=== PATIENT | male | born 1985 | race Caucasian/White ===

== ENCOUNTER 2019-03-28 12:23 | Observation (INO) ==
[2019-03-28] MEDS ORDERED: SODIUM CHLORIDE 0.9% 1000ML 500 ML IV ONE (13:31)
[2019-03-28] MEDS ORDERED: LORazepam 0.5 MG/1 ML VIAL IV STA (13:31)
[2019-03-28] MEDS ORDERED: OPTIRAY 320 125ml IV PRN (13:39)
[2019-03-28 13:41] LABS: Basophils # (auto) 0.02 K/uL (0-0.2); Basophils % (auto) 0.3 %; Eosinophils # (auto) 0.03 K/uL (0-0.5); Eosinophils % (auto) 0.4 %; Hematocrit (blood only) 45.8 % (42-52); Hemoglobin 15.8 g/dL (14.0-18.0); Immature Granulocytes # (auto) 0.02 K/uL (0.00-0.02); Immature Granulocytes % (auto) 0.3 %; Lymphocytes # (auto) 2.05 K/uL (1.2-3.4); Lymphocytes % (auto) 27.7 %; Mean Corpuscular Hemoglobin 30.7 pg (25-34); Mean Corpuscular Hgb Conc 34.5 g/dL (32-36); Mean Corpuscular Volume 89.1 fL (80-100); Mean Platelet Volume 11.2 fL (7.4-10.4); Monocytes # (auto) 0.41 K/uL (0.11-0.59); Monocytes % (auto) 5.5 %; Neutrophils # (auto) 4.86 K/uL (1.4-6.5); Neutrophils % (auto) 65.8 %; Platelet Count 278 K/uL (130-400); RDW Coefficient of Variation 12.5 % (11.5-14.5); RDW Standard Deviation 40.3 fL (36.4-46.3); Red Blood Count 5.14 M/uL (4.7-6.1); White Blood Count 7.39 K/uL (4.8-10.8)
[2019-03-28 13:50] LABS: INR 1.1 (0.9-1.1); Partial Thromboplastin Time 26.1 Seconds (21.0-31.0)
[2019-03-28 13:52] LABS: Alanine Aminotransferase 25 U/L (12-78); Albumin Level 4.4 gm/dl (3.4-5.0); Aspartate Aminotransferase 13 U/L (15-37); BUN Creatinine Ratio 12.7 (10-20); Blood Urea Nitrogen 16 mg/dl (7-18); Calcium 9.5 mg/dl (8.5-10.1); Carbon Dioxide 27 mmol/L (21-32); Chloride 106 mmol/L (98-107); Creatinine Clr Calc Pharmacy 95.4 ml/min; Est GFR (African American) 84.7; Glucose 94 mg/dl (70-99); Magnesium 2.2 mg/dl (1.8-2.4); Potassium 3.7 mmol/L (3.5-5.1); Sodium 139 mmol/L (136-145)
--- NOTE | 2019-03-28 13:53 | CT Scan Report ---
CT head/brain wo con CLINICAL HISTORY: 33 years-old Male presenting with Stroke evaluation. TECHNIQUE: Multidetector CT imaging of the head was performed without the use of intravenous contrast . IV contrast: None. One or more dose lowering techniques were used consistent with the principles of ALARA (as low as reasonably achievable), including automatic exposure control, mA or kV adjustment t o individual patient size, and/or use of iterative reconstruction. COMPARISON: None. CT DOSE (mGy.cm): The estimated cumulative dose is 691.00. FINDINGS: Casserole Preparer topogram: Unremarkable. Ventricles and sulci normal in size. No hemorrhage. Brain parenchyma normal in appearance with preser nilam ray-white differentiation. No acute territorial infarct. No mass effect or midline shift. No ext ra-axial fluid collection. Opacification of the sphenoid sinuses. Calvarium intact. IMPRESSION: 1. No acute intracranial abnormality. 2. Opacification of the sphenoid sinuses. Correlate clinically to ensure the absence of acute sinusi tis. ACT 112: Negative or not required by law. Electronically signed by: Christophe Russo M.D. 03/28/2019 1:51 PM
--- NOTE | 2019-03-28 13:55 | CT Scan Report ---
CT angio head w con CLINICAL HISTORY: 33 years-old Male presenting with stroke symptoms. TECHNIQUE: Multidetector CT angiography of the head was performed after the administration of intrave nous contrast. 3-D volumetric and/or maximum intensity projection (MIP) images were subsequently monique nstructed for review. IV contrast: 120 mL of Optiray 320. One or more dose lowering techniques were u sed consistent with the principles of ALARA (as low as reasonably achievable), including automatic ex posure control, mA or kV adjustment to individual patient size, and/or use of iterative reconstructio n. COMPARISON: None. CT DOSE (mGy.cm): The estimated cumulative dose is 691.00 mGy.cm. FINDINGS: Bacteriologist Pharmaceutical topogram: Unremarkable. Anterior circulation: Intracranial portions of the internal carotid arteries patent to the level of t he termini. Anterior cerebral arteries patent. Middle cerebral arteries patent. Anterior communicatin g artery patent. Posterior circulation: Codominant vertebral arteries. Intradural portions of the vertebral arteries p atent. Posterior inferior cerebellar arteries patent. Basilar artery patent. Anterior inferior cerebe llar arteries poorly visualized. Superior cerebellar arteries patent. Posterior cerebral arteries pat ent. Posterior communicating arteries patent. Dural venous sinuses: Patent. Other: Allowing for the phase of contrast, brain parenchyma within normal limits. Opacification of th e sphenoid sinus. IMPRESSION: 1. No evidence of aneurysm, focal vessel occlusion, or significant stenosis of the intracranial katlin winnie. ACT 112: Negative or not required by law. Electronically signed by: Christophe Russo M.D. 03/28/2019 1:54 PM
[2019-03-28 13:57] LABS: Albumin Globulin Ratio 1.3 (0.9-2); Alkaline Phosphatase 58 U/L (45-117); Bilirubin,Total 2.1 mg/dl (0.2-1); Globulin 3.5 gm/dl (2.5-4.0); Total Protein 7.9 gm/dl (6.4-8.2); Troponin I < 0.015 ng/ml (0-0.045)
--- NOTE | 2019-03-28 15:39 | XRay Report ---
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 TECHNIQUE: 3 views of the orbits were obtained. COMPARISON: None. FINDINGS: No radiopaque intraorbital foreign body. Bony orbits grossly intact. Paranasal sinuses grossly clear. Visualized portion of the calvarium intact. IMPRESSION: No intraorbital metallic foreign body to preclude MRI exam. ACT 112: Negative or not required by law. Electronically signed by: Christophe Russo M.D. 03/28/2019 3:38 PM
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
--- NOTE | 2019-03-28 16:08 | Magnetic Resonance Report ---
MRI OF THE BRAIN WITHOUT CONTRAST CLINICAL HISTORY: stroke symptoms TUNNEL VISION, CONFUSION. HEADACHE. COMPARISON STUDY: CT scan dated 03/28/2019 FINDINGS: Sagittal T1, axial diffusion, proton density and T2 weighted axial, coronal FLAIR, and axial T1-weigh bhupendra images were acquired. No intra or extra-axial mass lesions are visualized Axial diffusion-weighted images reveal no evidence of acute or subacute infarction. There is no evidence of ventricular dilatation. Proton density T2-weighted and FLAIR images reveal no significant intraparenchymal signal abnormaliti es. There are no abnormal flow voids. Inflammatory changes are present within the sphenoid sinus. IMPRESSION: 1. Sphenoid sinus opacification 2. Otherwise normal noncontrast MRI the brain. ACT 112: Negative or not required by law. Electronically signed by: Ghanshyam Ronquillo M.D. 03/28/2019 4:07 PM
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
[2019-03-28 16:22] LABS: Bilirubin Direct 0.3 mg/dl (0-0.2); Thyroid Stimulating Hormone 1.09 uIu/ml (0.300-4.500)
[2019-03-28 16:37] LABS: Appearance Urine Clear (Clear); Bacteria Urine Automated Negative (Negative); Bilirubin Urine Negative (Negative); Blood Urine Negative (Negative); Cast Urine Automated 0 /lpf (0-5); Color Urine Yellow; Epithelial Cell Urine Auto 0-5 /lpf (0-5); Glucose Urine UA Negative (Negative); Ketones Urine Negative (Negative); Leukocyte Esterase Urine Trace (Negative); Nitrite Urine Negative (Negative); Protein Urine Negative (Negative); RBC Urine Automated 0-4 /hpf (0-4); Specific Gravity Urine > 1.045 (1.000-1.030); Urobilinogen Urine Negative (Negative)
[2019-03-28] MEDS ORDERED: ALUMINUM/MAGNESIUM SUSP 30 ML UDC PO PRN (16:49)
[2019-03-28] MEDS ORDERED: MAGNESIUM HYDROXIDE SUSP 30 ML UDC PO PRN (16:49)
[2019-03-28] MEDS ORDERED: PHARMACIST DISCHARGE MED REC CONSULT PRN (16:49)
[2019-03-28] MEDS ORDERED: ONDANSETRON INJ 2 MG/ML 2 ML VIAL IV PRN (16:49)
[2019-03-28] MEDS ORDERED: ACETAMINOPHEN 325 MG TAB PO PRN (16:49)
[2019-03-28] MEDS ORDERED: POLYETHYLENE (MIRALAX) 17 GM PACK PO PRN (16:49)
[2019-03-28 16:55] LABS: Amphetamines+Metham, Urine Neg (Neg); Barbiturates, Urine Neg (Neg); Benzodiazepine, Urine Neg (Neg); Cocaine, Urine Neg (Neg); MDMA (Ecstacy), Urine Neg (Neg); Methadone, Urine Neg (Neg); Opiate, Urine Neg (Neg); Phencyclidine, Urine Neg (Neg)
--- NOTE | 2019-03-28 16:55 | Electrocardiogram Report ---
Test Reason : Blood Pressure : / mmHG Vent. Rate : 091 BPM Atrial Rate : 091 BPM P-R Int : 144 ms QRS Dur : 112 ms QT Int : 358 ms P-R-T Axes : 060 056 065 degrees QTc Int : 440 ms Normal sinus rhythm RSR' or QR pattern in V1 suggests right ventricular conduction delay Borderline ECG No previous ECGs available Confirmed by Jamir Akbar ([id number]) on 03/28/2019 4:54:28 PM Referred By: Confirmed By:Jamir Akbar
--- NOTE | 2019-03-28 17:33 | Emergency Department Note ---
Entered by Jose Lopez acting as a scribe for History of Present Illness General Chief complaint: Altered Mental Status Stated complaint: WEAKNESS VISUAL DISTURBANCE METAL TASTE Time Seen by Provider: 03/28/19 13:25 Source: patient Limitations: no limitations History of Present Illness Location: eyes Pain Consistency: + constant Maximum Pain Intensity: 7 Quality: + constant Associated symptoms: + other (tunnel vision, blurry vision, head tightness, metallic taste in mouth) The patient is a 33 year old male who presents to the Emergency Room with com plaints of constant visual change. The patient states his vision is blurry and he has tunnel vision. He notes he is unsure how he got to the hospital today. He states he has never had problems like this before. He notes he has a metallic taste in his mouth. He states he is unsure when his symptoms started. He states he remembers waking up this morning and was going to take his daughter to [place]. He states he felt fine this morning. He states he never had issues with his memory, weakness to one side, or previous strokes. He notes he has tightness in his head and states it is around the middle of his face. He notes he has had a lot of concussions in his life. He denies having any falls today that he could recall. He denies having diabetes. Nursing states the patient came from work. HPI is limited secondary to confusion. Home Medications Home Medications Medication Instructions Recorded Confirmed Type No Known Home Medications 03/28/19 03/28/19 History Allergies Allergy/AdvReac Type Severity Reaction Status Date / Time No Known Allergies Allergy Unverified 07/13/14 11:43 Past Med/Surg History Medical History History of multiple concussions from contact sport Migraine Traumatic brain injury (Resolved) Surgical History No significant past surgical history Family History (Updated 03/28/19 @ 16:05 by Tierney Bolivar PA-C) Other Diabetes Hypertension Prostate cancer Social History (Updated 03/28/19 @ 16:06 by Tierney Bolivar PA-C) Preferred Language: Slovenian Communication Ability: Effective Shoe Lining Fitter Required: No Beliefs That Will Affect Care: None marital status: Single Current Living Situation: Alone Current Living Situation Comment: with 5 year old daughter current occupational status: employed 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 [employer] Other Information That Helps Us Care for You: No Feels Safe at Home: Yes Safety Concerns: Feels Safe At This Time Smoking Status: Former smoker Do You Dip or Chew Tobacco: No ; Second Hand Exposure: No ; Tobacco Cessation Education Requested by Patient: No Hx Alcohol Use: Yes Alcohol type: beer and hard liquor Alcohol Intake Frequency: Weekly Alcohol Intake Frequency Comment: < 7 drinks per week Hx Substance Use: No Review of Systems Other (ROS limited secondary to confusion.) Physical Exam Vital Signs Vital Signs - 24 hr 03/28/19 12:25 03/28/19 12:34 03/28/19 13:00 Temperature 36.8 C Temperature Source Oral Pulse Rate 93 H 78 83 Pulse Rate from SpO2 Sensor 84 Pulse Rhythm Regular Pulse Strength Normal Respiratory Rate 20 16 21 Respiratory Effort / Characteristics Non-Labored Spontaneous Respiratory Depth Normal Respiratory Pattern Regular Blood Pressure 130/74 Blood Pressure Mean 92 Blood Pressure Position Sitting Pulse Oximetry 98 98 Oxygen Delivery Method Room Air Sepsis Recent Fever Within 48 Hours No Sepsis Action Taken by Nursing No Action Required 03/28/19 13:10 03/28/19 13:23 03/28/19 13:31 Temperature Temperature Source Pulse Rate 96 H 77 73 Pulse Rate from SpO2 Sensor 99 H 85 Pulse Rhythm Pulse Strength Respiratory Rate 15 21 15 Respiratory Effort / Characteristics Respiratory Depth Respiratory Pattern Blood Pressure 136/81 136/97 132/79 Blood Pressure Mean 109 113 96 Blood Pressure Position Pulse Oximetry 99 99 Oxygen Delivery Method Sepsis Recent Fever Within 48 Hours Sepsis Action Taken by Nursing 03/28/19 14:00 03/28/19 14:01 03/28/19 14:30 Temperature Temperature Source Pulse Rate 84 88 98 H Pulse Rate from SpO2 Sensor 90 88 97 H Pulse Rhythm Pulse Strength Respiratory Rate 20 17 23 Respiratory Effort / Characteristics Respiratory Depth Respiratory Pattern Blood Pressure 139/89 140/94 Blood Pressure Mean 112 109 Blood Pressure Position Pulse Oximetry 100 100 100 Oxygen Delivery Method Room Air Sepsis Recent Fever Within 48 Hours Sepsis Action Taken by Nursing 03/28/19 15:00 03/28/19 15:01 Temperature Temperature Source Pulse Rate 89 93 H Pulse Rate from SpO2 Sensor Pulse Rhythm Pulse Strength Respiratory Rate 22 19 Respiratory Effort / Characteristics Respiratory Depth Respiratory Pattern Blood Pressure 134/85 Blood Pressure Mean 105 Blood Pressure Position Pulse Oximetry Oxygen Delivery Method Sepsis Recent Fever Within 48 Hours Sepsis Action Taken by Nursing GENERAL: Patient is in mild distress. Anxious and tearful. HEENT: No acute trauma, normocephalic atraumatic mucous membranes moist, no nasal congestion, no scleral icterus. Pupils equal and reactive to light. NECK: No stridor, no adenopathy, no meningismus, trachea is midline. LUNGS: Clear to auscultation bilaterally, no wheeze, no rhonchi, breath sounds equal. HEART: Without murmurs gallops or rubs, regular rate and rhythm. ABDOMEN: Soft, nontender, bowel sounds positive, no hernias, no peritonitis. EXTREMITIES: No cyanosis or edema, full range of motion of all the joints without pain or difficulty, no signs for acute trauma. NEUROLOGIC: No facial droop. No speech slur. Awake and alert. Amnestic to today's events. Diffuse weakness. Bilateral and equal upper extremity drift. No cerebellar dysfunction. SKIN: No rash, no jaundice, no diaphoresis. Course Course 1326: The patient was evaluated in room C2B, and a complete history and physical examination were performed. 1412: I reevaluated the patient. He is feeling better but still does not have memory of what happened today. Patient was insisting today was Sunday, he was assured it was actually Sunday. The patient was told that he was at work today, now with his daughter. 1425: I spoke with Dr. Elam - Jesse. She recommends getting a MRI and a hospital stay. 1453: I spoke with Tierney Holt PA-C. Dr. Mendoza, [facility] Hospitalist, will further manage the care of the patient. Administered Medications Discontinued Medications Lorazepam (Ativan) 0.5 mg in 1 mls @ 1 mls/min IV NOW STA Stop: 03/28/19 13:32 Last Admin: 03/28/19 13:58 Dose: 1 mls/min Documented by: [id number] Sodium Chloride (Nss 1000ml) 500 mls @ 999 mls/hr IV .Q31M ONE Stop: 03/28/19 14:01 Last Infusion: 03/28/19 14:45 Dose: 0 mls/hr Documented by: [id number] Admin: 03/28/19 13:58 Dose: 999 mls/hr Documented by: [id number] Ioversol (Optiray 320 125ml) 120 ml IV ONCE PRN PRN Reason: Interaction Checking Stop: 04/01/19 13:38 Last Admin: 03/28/19 13:40 Dose: 120 ml Documented by: [id number] Medical Decision Making Differential Diagnosis Differential Diagnosis includes but is not limited to stroke, intracranial bleeding, anxiety, depression, drug abuse, electrolyte imbalance, head injury, metabolic abnormality, dehydration, and migraine. Medical Records Attestation: I reviewed the patient's medical records. Home Medications Current Medication List: was personally reviewed by me Laboratory Data Attestation: I reviewed the patient's lab results. Result diagrams: 03/28/19 13:19 03/28/19 13:19 Lab Results 03/28/19 03/28/19 03/28/19 Range/Units 13:19 13:19 13:19 WBC 7.39 (4.8-10.8) K/uL RBC 5.14 (4.7-6.1) M/uL Hgb 15.8 (14.0-18.0) g/dL Hct 45.8 (42-52) % MCV 89.1 (80-100) fL MCH 30.7 (25-34) pg MCHC 34.5 (32-36) g/dL RDW Std Deviation 40.3 (36.4-46.3) fL RDW Coeff of Daron 12.5 (11.5-14.5) % Plt Count 278 (130-400) K/uL MPV 11.2 H (7.4-10.4) fL Immature Gran % (Auto) 0.3 % Neut % (Auto) 65.8 % Lymph % (Auto) 27.7 % Wilcox % (Auto) 5.5 % Eos % (Auto) 0.4 % Baso % (Auto) 0.3 % Immature Gran # (Auto) 0.02 (0.00-0.02) K/uL Neut # (Auto) 4.86 (1.4-6.5) K/uL Lymph # (Auto) 2.05 (1.2-3.4) K/uL Wilcox # (Auto) 0.41 (0.11-0.59) K/uL Eos # (Auto) 0.03 (0-0.5) K/uL Baso # (Auto) 0.02 (0-0.2) K/uL PT 11.0 (9.0-12.0) Seconds INR 1.1 (0.9-1.1) APTT 26.1 (21.0-31.0) Seconds PTT Ratio 1.0 Sodium 139 (136-145) mmol/L Potassium 3.7 (3.5-5.1) mmol/L Chloride 106 (98-107) mmol/L Carbon Dioxide 27 (21-32) mmol/L Anion Gap 6.0 (3-11) BUN 16 (7-18) mg/dl Creatinine 1.28 (0.6-1.4) mg/dl Est Cr Clr Drug Dosing 95.4 ml/min Est GFR ( Amer) 84.7 Est GFR (Non-Af Amer) 73.0 BUN/Creatinine Ratio 12.7 (10-20) Glucose 94 (70-99) mg/dl Calcium 9.5 (8.5-10.1) mg/dl Magnesium 2.2 (1.8-2.4) mg/dl Total Bilirubin 2.1 H (0.2-1) mg/dl Direct Bilirubin (0-0.2) mg/dl AST 13 L (15-37) U/L ALT 25 (12-78) U/L Alkaline Phosphatase 58 (45-117) U/L Troponin I < 0.015 (0-0.045) ng/ml Total Protein 7.9 (6.4-8.2) gm/dl Albumin 4.4 (3.4-5.0) gm/dl Globulin 3.5 (2.5-4.0) gm/dl Albumin/Globulin Ratio 1.3 (0.9-2) TSH (0.300-4.500) uIu/ml 03/28/19 Range/Units 13:19 WBC (4.8-10.8) K/uL RBC (4.7-6.1) M/uL Hgb (14.0-18.0) g/dL Hct (42-52) % MCV (80-100) fL MCH (25-34) pg MCHC (32-36) g/dL RDW Std Deviation (36.4-46.3) fL RDW Coeff of Daron (11.5-14.5) % Plt Count (130-400) K/uL MPV (7.4-10.4) fL Immature Gran % (Auto) % Neut % (Auto) % Lymph % (Auto) % Wilcox % (Auto) % Eos % (Auto) % Baso % (Auto) % Immature Gran # (Auto) (0.00-0.02) K/uL Neut # (Auto) (1.4-6.5) K/uL Lymph # (Auto) (1.2-3.4) K/uL Wilcox # (Auto) (0.11-0.59) K/uL Eos # (Auto) (0-0.5) K/uL Baso # (Auto) (0-0.2) K/uL PT (9.0-12.0) Seconds INR (0.9-1.1) APTT (21.0-31.0) Seconds PTT Ratio Sodium (136-145) mmol/L Potassium (3.5-5.1) mmol/L Chloride (98-107) mmol/L Carbon Dioxide (21-32) mmol/L Anion Gap (3-11) BUN (7-18) mg/dl Creatinine (0.6-1.4) mg/dl Est Cr Clr Drug Dosing ml/min Est GFR ( Amer) Est GFR (Non-Af Amer) BUN/Creatinine Ratio (10-20) Glucose (70-99) mg/dl Calcium (8.5-10.1) mg/dl Magnesium (1.8-2.4) mg/dl Total Bilirubin (0.2-1) mg/dl Direct Bilirubin 0.3 H (0-0.2) mg/dl AST (15-37) U/L ALT (12-78) U/L Alkaline Phosphatase (45-117) U/L Troponin I (0-0.045) ng/ml Total Protein (6.4-8.2) gm/dl Albumin (3.4-5.0) gm/dl Globulin (2.5-4.0) gm/dl Albumin/Globulin Ratio (0.9-2) TSH 1.090 (0.300-4.500) uIu/ml Imaging Data Radiologist's Impression: Radiology results as stated below per my review and the radiologist's interpretation: CT head/brain wo con CLINICAL HISTORY: 33 years-old Male presenting with Stroke evaluation. TECHNIQUE: Multidetector CT imaging of the head was performed without the use of intravenous contrast. IV contrast: None. One or more dose lowering techniques were used consistent with the principles of ALARA (as low as reasonably achievable), including automatic exposure control, mA or kV adjustment to individual patient size, and/or use of iterative reconstruction. COMPARISON: None. CT DOSE (mGy.cm): The estimated cumulative dose is 691.00. FINDINGS: Senior Web Developer topogram: Unremarkable. Ventricles and sulci normal in size. No hemorrhage. Brain parenchyma normal in appearance with preserved ray-white differentiation. No acute territorial infarct. No mass effect or midline shift. No extra-axial fluid collection. Opacification of the sphenoid sinuses. Calvarium intact. IMPRESSION: 1. No acute intracranial abnormality. 2. Opacification of the sphenoid sinuses. Correlate clinically to ensure the absence of acute sinusitis. ACT 112: Negative or not required by law. Electronically signed by: Christophe Russo M.D. 03/28/2019 1:[address] angio head w con CLINICAL HISTORY: 33 years-old Male presenting with stroke symptoms. TECHNIQUE: Multidetector CT angiography of the head was performed after the administration of intravenous contrast. 3-D volumetric and/or maximum intensity projection (MIP) images were subsequently reconstructed for review. IV contrast: 120 mL of Optiray 320. One or more dose lowering techniques were used consistent with the principles of ALARA (as low as reasonably achievable), including automatic exposure control, mA or kV adjustment to individual patient size, and/or use of iterative reconstruction. COMPARISON: None. CT DOSE (mGy.cm): The estimated cumulative dose is 691.00 mGy.cm. FINDINGS: Senior Web Developer topogram: Unremarkable. Anterior circulation: Intracranial portions of the internal carotid arteries patent to the level of the termini. Anterior cerebral arteries patent. Middle cerebral arteries patent. Anterior communicating artery patent. Posterior circulation: Codominant vertebral arteries. Intradural portions of the vertebral arteries patent. Posterior inferior cerebellar arteries patent. Basilar artery patent. Anterior inferior cerebellar arteries poorly visualized. Superior cerebellar arteries patent. Posterior cerebral arteries patent. Posterior communicating arteries patent. Dural venous sinuses: Patent. Other: Allowing for the phase of contrast, brain parenchyma within normal limits. Opacification of the sphenoid sinus. IMPRESSION: 1. No evidence of aneurysm, focal vessel occlusion, or significant stenosis of the intracranial arteries. ACT 112: Negative or not required by law. Electronically signed by: Christophe Russo M.D. 03/28/2019 1:54 PM ECG Data Attestation: I personally reviewed and interpreted this ECG as follows: Indication: + altered mental status Rate (beats per minute): 91 Rhythm: + normal sinus ECG Intervals/blocks: + Normal QT-c (QT-c is 434) ECG ST segments: no ST depression and no ST elevation ECG Findings: no PVCs Blood Pressure Blood Pressure Findings: Elevated blood pressure Blood Pressure Disposition: further management by hospitalist [facility] Narrative There is no leukocytosis or concerning anemia. No coagulopathy. No significant electrolyte abnormality or kidney failure. Bilirubin was mildly elevated, the remaining LFTs were unremarkable. No evidence for any issue with the patient's thyroid. EKG shows a sinus rhythm, no acute ischemia. Cardiac enzyme testing x1 is not consistent with acute cardiac injury. Urinalysis does show a few white cells, no bacteria. Urine tox was negative. Brain CT Angio did not show evidence for mass or aneurysm, there was no stroke lesion found. Sphenoid sinusitis was seen. Brain MRI did not show any evidence for stroke. There was no mass. Sphenoid sinusitis was noted. On my exam, the patient did not have any focal neurologic findings. He was not febrile or toxic. He was amnestic of today's events. The patient received IV saline. He was given a small dose of IV Ativan for his stress and anxiety. The patient is still amnestic of today's events but his anxiety has improved. He is resting comfortably. I did speak with neurology. A hospital stay was felt warranted. Further work-up was felt warranted. At this point, the cause for his presentation and complaints is unclear, complex migraine though is a thought. Certainly transient global amnesia is a possibility. I did speak with case management, the on-call hospitalist was consulted. Impression & Plan Stroke-like symptom, Amnesia, Headache, Visual disturbance Discharge Plan Visit Data *Final* Discharge Date/Time: 03/28/19 16:23 Chief Complaint: Altered Mental Status Stated Complaint: WEAKNESS VISUAL DISTURBANCE METAL TASTE Other Complaint: Visual Disturbance ED Provider: Inocente Adkins Discharge Problem: Stroke-like symptom, Amnesia, Headache, Visual disturbance Patient Disposition: Admitted As Inpatient Discharge Instructions Interventions: ED Discharge Assessment Last Done: 03/28/19 16:23 Discharge Problem: Headache Qualifiers: Headache type: unspecified Headache chronicity pattern: unspecified pattern Intractability: not intractable Qualified Code(s): R51 - Headache The scribe's documentation has been prepared under my direction and personally reviewed by me in its entirety. I confirm that the note above accurately reflects all work, treatment, procedures, and medical decision making performed by me.
[2019-03-28] MEDS ORDERED: IBUPROFEN 800 MG TAB PO PRN (17:44)
[2019-03-28] MEDS ORDERED: GADOBUTROL 65ML VIAL IV PRN (21:09)
--- NOTE | 2019-03-28 21:09 | Magnetic Resonance Report ---
MR cervical spine wo con CLINICAL HISTORY: Generalized weakness, arms brisk reflexes, myelopathy TECHNIQUE: Sagittal and axial T1, T2 and STIR images were obtained. COMPARISON STUDY: No previous studies for comparison. There are no suspicious areas of marrow replacement. No intrinsic cervical cord lesions are visualize d. C2-3: There is no evidence of disc bulge or focal herniation. There is no spinal or foraminal stenosi s. C3-4: There is a minor circumferential disc bulge with minimal spinal canal narrowing. There is no si gnificant foraminal stenosis C4-5: There is a minimal circumferential disc bulge with minimal spinal canal narrowing. There is no significant foraminal narrowing C5-6 :There is a mild circumferential disc bulge with minor spinal canal narrowing. There is no signi ficant foraminal stenosis C6-7: There is a mild circumferential disc bulge with minor spinal canal narrowing. There is no signi ficant foraminal stenosis C7-T1: There is no evidence of disc bulge or focal herniation. There is no evidence of spinal or fora faustino stenosis. The study is degraded due to motion artifact. There is sphenoid sinus opacification IMPRESSION: 1. Motion degraded study 2. Mild multilevel disc bulges 3. Very minor multilevel spinal canal narrowing 4. No cord lesions identified ACT 112: Negative or not required by law. Electronically signed by: Ghanshyam Ronquillo M.D. 03/28/2019 9:08 PM
--- NOTE | 2019-03-28 21:33 | Magnetic Resonance Report ---
MRI OF THE BRAIN WITHOUT AND WITH IV CONTRAST CLINICAL HISTORY: Change in mental status. Confusion migraine versus seizure versus transient ischemi c attack COMPARISON STUDY: Noncontrast study performed earlier in the day TECHNIQUE: MRI of the brain was performed from the vertex to the skull base utilizing various T1 and T2 weighted sequences. Following the IV administration of 9 mL of Gadavist contrast, additional enhan pema images were obtained. FINDINGS: Sagittal T1, axial diffusion, proton density and T2 weighted axial, coronal FLAIR, and pre and post a xial T1-weighted images were acquired. These were supplemented with post gadolinium coronal T1 weight ed images. No intra or extra-axial mass lesions are visualized. Axial diffusion-weighted images reveal no evidence of acute or subacute infarction. There is no evidence of ventricular dilatation. Proton density T2-weighted and FLAIR images reveal no significant intraparenchymal signal abnormaliti es. There are no abnormal flow voids. There is no evidence of pathologic enhancement. Thin section T2-weighted images through the temporal lobes reveal symmetric hippocampal formations. There is persistent opacification of the sphenoid sinus. IMPRESSION: 1. Sphenoid sinus opacification 2. Otherwise normal MRI the brain. No evidence of acute or subacute infarction. No evidence of intrac ranial mass. No evidence of pathologic enhancement. ACT 112: Negative or not required by law. Electronically signed by: Ghanshyam Ronquillo M.D. 03/28/2019 9:32 PM
--- NOTE | 2019-03-28 22:23 | Ultrasound Report ---
ULTRASOUND OF THE CAROTID ARTERIES CLINICAL HISTORY: Change in mental status COMPARISON STUDY: None. TECHNIQUE: Real-time, grayscale, and color Doppler sonography of the carotid arteries was performed. Imaging reviewed in the transverse and longitudinal planes. NASCET criteria was utilized for stenosis calcification. FINDINGS: There is minimal atherosclerotic plaque present . The peak systolic velocity within the right internal carotid artery is 55 cm/sec. The systolic velocity ratio of right internal to common carotid artery is 0.5. The peak systolic velocity within the left internal carotid artery is 52 cm/sec. The systolic velocity ratio left internal to common carotid artery is 0.5. Antegrade flow is seen in the vertebral arteries. The external carotid arteries are patent. Blood pressure in the right arm measured 126 mm/Hg. Blood pressure in the left arm measured 121 mm/H g. IMPRESSION: No evidence of hemodynamically significant carotid stenosis. ACT 112: Negative or not required by law. Electronically signed by: Ghanshyam Ronquillo M.D. 03/28/2019 10:22 PM
[2019-03-29 06:05] LABS: Basophils # (auto) 0.04 K/uL (0-0.2); Basophils % (auto) 0.6 %; Eosinophils # (auto) 0.12 K/uL (0-0.5); Eosinophils % (auto) 1.9 %; Hematocrit (blood only) 44.1 % (42-52); Hemoglobin 14.9 g/dL (14.0-18.0); Immature Granulocytes # (auto) 0.01 K/uL (0.00-0.02); Immature Granulocytes % (auto) 0.2 %; Lymphocytes # (auto) 2.69 K/uL (1.2-3.4); Mean Corpuscular Hemoglobin 30.5 pg (25-34); Mean Corpuscular Hgb Conc 33.8 g/dL (32-36); Mean Corpuscular Volume 90.4 fL (80-100); Mean Platelet Volume 11.1 fL (7.4-10.4); Monocytes # (auto) 0.59 K/uL (0.11-0.59); Monocytes % (auto) 9.2 %; Neutrophils # (auto) 2.95 K/uL (1.4-6.5); Neutrophils % (auto) 46.1 %; Platelet Count 278 K/uL (130-400); RDW Coefficient of Variation 12.7 % (11.5-14.5); Red Blood Count 4.88 M/uL (4.7-6.1)
[2019-03-29 06:34] LABS: Estimated Average Glucose 105 mg/dl; Hemoglobin A1C 5.3 % (4.5-5.6)
[2019-03-29 06:49] LABS: BUN Creatinine Ratio 11.5 (10-20); Calcium 9.1 mg/dl (8.5-10.1); Creatinine Clr Calc Pharmacy 100.1 ml/min; Est GFR (African American) 89.7; Est GFR (Non-African American) 77.4; Potassium 4.3 mmol/L (3.5-5.1)
--- NOTE | 2019-03-29 11:34 | Progress Note ---
DATE: 03/29/2019 SUBJECTIVE: I have seen the patient in followup of an episode of protracted amnesia followed by headache. Headache has resolved with ibuprofen. Cervical spine MRI done because of upper extremity weakness is degraded by motion, shows mild multilevel disk bulges, no significant cord compression and no cord lesions identified. MRI of the brain: Sphenoid sinus opacification, otherwise normal. Carotid ultrasound: No significant stenosis. PHYSICAL EXAMINATION: VITAL SIGNS: 123/73, 90, 17, 36.4, 98% on room air. NEUROLOGIC: The patient is awake and alert, normal speech and language. Affect is appropriate. There is full strength in the upper and lowers. Symmetrically mildly brisk reflexes. No clonus and toes are downgoing. IMPRESSION: Confusional migraine versus transient global amnesia. PLAN: Await results of EEG. Suspect this will be normal. The patient does not currently require any prophylaxis for migraine as the migraines are infrequent. Dr. Mariscal and I discussed potentially having Psychiatry see him. He has had significant personal stressors indicates that he is somewhat flatter or motionless about some family stressors. He has also been served new court papers for the custody of his child. If Psychiatry is available in the hospital, he will have a Psychiatry consult; otherwise, I would recommend that he see Psychology as an outpatient for counseling. The patient is in agreement. The patient should see us in followup post discharge. Marjan Hernandez would likely be available in 2 weeks.
--- NOTE | 2019-03-29 11:57 | Electroencephalogram ---
EEG Procedure Note Date of Service March 29, 2019 Start / End Times Start Time: 09:41 End Time: 10:[address] Marjan Haro History A 33 year old male with episodes of confusion. EEG performed for evaluation of seizures. Home Medication List Home Medications Medication Instructions Recorded Confirmed Type No Known Home Medications 03/28/19 03/28/19 History Inpatient Medication List Gadobutrol (Gadavist 65ml) 9 ml IV ONCE PRN PRN Reason: Interaction Checking Stop: 04/01/19 21:08 Last Admin: 03/28/19 21:09 Dose: 9 ml Documented by: [id number] Ibuprofen (Motrin) 800 mg PO TID PRN PRN Reason: Migraine Headache Stop: 04/27/19 20:59 Last Admin: 03/28/19 18:46 Dose: 800 mg Documented by: [id number] Discontinued Medications Lorazepam (Ativan) 0.5 mg in 1 mls @ 1 mls/min IV NOW STA Stop: 03/28/19 13:32 Last Admin: 03/28/19 13:58 Dose: 1 mls/min Documented by: [id number] Sodium Chloride (Nss 1000ml) 500 mls @ 999 mls/hr IV .Q31M ONE Stop: 03/28/19 14:01 Last Infusion: 03/28/19 14:45 Dose: 0 mls/hr Documented by: [id number] Admin: 03/28/19 13:58 Dose: 999 mls/hr Documented by: [id number] Ioversol (Optiray 320 125ml) 120 ml IV ONCE PRN PRN Reason: Interaction Checking Stop: 04/01/19 13:38 Last Admin: 03/28/19 13:40 Dose: 120 ml Documented by: [id number] Description This is a 21 electrode EEG with a single channel dedicated to limited EKG. The electrodes were placed in accordance with the International 10-20 system. REPORT: At the onset of the EEG, the patient is awake. The background activity consist of 10-11 Hz, persistent, posteriorly dominant, low amplitude, symmetric and rhythmic activity that is reactive to eye opening. Anteriorly, it consist of a mixture of low voltage indeterminate activity. Stepwise intermittent photic stimulation does not induce any abnormalities. Drowsiness is characterized by low amplitude mixed frequency activity, roving eye movements, and decreased eye blinking and muscle artifact. IMPRESSION: This is a normal awake and drowsy EEG. No epileptiform discharges or electrographic seizures are recorded.
--- NOTE | 2019-03-29 12:11 | Hospitalist Progress Note ---
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 He was brought in and dropped off by coworkers secondary to complaints of tunnel vision, headache and confusion. MRI Brain : no acute abnormality, + sphenoid sinus opacification Pt with out URI sx, fever Pt presenting with Altered mental status and NGUYỄN/visual changes similar to prior migraines. AMS is new, but may be atypical migraine Does not appear to be infectious Clinically a lot better this morning Looks depressed and anxious at times No more recurrence of symptoms and all the symptoms have resolved Awaiting EEG and echo results Medically stable now like to go home tomorrow Anxiety/depression Noted to have very anxious with depressed mood Will ask psychiatric evaluation while in the hospital Opacity seen sphenoid sinuses Denies any symptoms of acute sinusitis We will try to discuss with ENT specialist (5) DVT prophylaxis: SCD/TEDS Disposition: admit to tele Follow up: Pt needs to establish with PCP upon discharge Pt was seen and examined in collaboration with Dr. Mendoza, please see addendum Subjective 03/29/2019 The patient was seen and examined in telemetry unit He was brought into the hospital by his coworkers with history of sudden headache and amnesia Did have tunnel vision associated with it while in the emergency room He had history of recurrent concussion but those did not require any hospitalization and no history of loss of consciousness with complete recovery Denies any symptoms as of this morning Does not have any sinus pain and/or pressure and no history of allergic rhinitis Review of Systems Review of Systems: All systems reviewed and are unremarkable except as noted below Eyes: + tunnel vision (Tunnel vision reported on admission and completely resolved now) Neurologic: + memory loss (Cannot remember anything that happened yesterday when he was in the office and then was brought into the emergency room by coworkers) Physical Exam Physical Exam: Lying in bed comfortably and looks depressed Constitutional: well developed, well nourished and + ill appearing (Looks depressed); no acute distress Eyes: PERRL, conjunctivae normal, anicteric sclerae ENMT: No runny nose, sneezing, sinus pain and/or pressure Neck: trachea midline, no thyromegaly Respiratory: normal respiratory effort Auscultation: lungs clear to auscultation bilaterally Cardiovascular: Rate/Rhythm: regular rate and regular rhythm Heart Sounds: no murmur Gastrointestinal (Abdomen): Inspection/Auscultation: abdomen normal to inspection and normal bowel sounds Percussion/Palpation: abdomen soft; abdomen nontender Musculoskeletal: Extremities: strength 5/5 throughout Neurologic: patellar DTR's 2+ bilat, sensation intact moves all extremities; no focal motor deficits Speech / Cognition: normal speech Motor/Sensory: no tremor Psychiatric: Orientation: alert and oriented x 3 Affect: + depressed affect and + anxious affect Mood: + depressed mood Lymphatic: no cervical or axillary lymphadenopathy Results & Data Vital Signs (Past 12 Hours) Vital Signs Temp Pulse Pulse Resp BP Pulse Ox Pulse Ox 03/29/19 10:49 36.8 C 91 H 17 121/70 96 03/29/19 08:00 90 98 03/29/19 07:49 36.4 C L 97 H 17 123/73 98 03/29/19 03:41 36.6 C 71 16 103/56 L 97 Laboratory Results Short CBC 03/28/19 03/29/19 Range/Units 13:19 05:36 WBC 7.39 6.40 (4.8-10.8) K/uL Hgb 15.8 14.9 (14.0-18.0) g/dL Hct 45.8 44.1 (42-52) % Plt Count 278 278 (130-400) K/uL BMP 03/28/19 03/29/19 13:19 05:36 Sodium 139 138 Potassium 3.7 4.3 D Chloride 106 107 Carbon Dioxide 27 30 BUN 16 14 Creatinine 1.28 1.22 Glucose 94 87 Calcium 9.5 9.1 Cardiac Enzymes 03/28/19 Range/Units 13:19 Troponin I < 0.015 (0-0.045) ng/ml Liver Function 03/28/19 03/28/19 Range/Units 13:19 13:19 Total Bilirubin 2.1 H (0.2-1) mg/dl Direct Bilirubin 0.3 H (0-0.2) mg/dl AST 13 L (15-37) U/L ALT 25 (12-78) U/L Alkaline Phosphatase 58 (45-117) U/L Albumin 4.4 (3.4-5.0) gm/dl Urine 03/28/19 Range/Units 16:25 Urine Color Yellow Urine Appearance Clear (Clear) Urine pH 6.0 (4.5-7.5) Ur Specific [place] > 1.045 H (1.000-1.030) Urine Protein Negative (Negative) Urine Glucose (UA) Negative (Negative) Medications Administered Current Inpatient Medications Acetaminophen (Tylenol) 650 mg PO Q4H PRN PRN Reason: Pain or Fever Stop: 04/27/19 16:48 Al Hydrox/Mg Hydrox/Simethicone (Maalox) 15 ml PO Q4H PRN PRN Reason: Dyspepsia Stop: 04/27/19 16:48 Gadobutrol (Gadavist 65ml) 9 ml IV ONCE PRN PRN Reason: Interaction Checking Stop: 04/01/19 21:08 Last Admin: 03/28/19 21:09 Dose: 9 ml Documented by: Ibuprofen (Motrin) 800 mg PO TID PRN PRN Reason: Migraine Headache Stop: 04/27/19 20:59 Last Admin: 03/28/19 18:46 Dose: 800 mg Documented by: Magnesium Hydroxide (Milk Of Magnesia) 30 ml PO Q12H PRN PRN Reason: Constipation Stop: 04/27/19 16:48 Miscellaneous Information (Pharmacist Discharge Med Rec Consult) 1 ea N/A UD PRN PRN Reason: Consult Stop: 04/27/19 16:48 Ondansetron HCl (Zofran) 4 mg IV Q6H PRN PRN Reason: Nausea Stop: 04/27/19 16:48 Polyethylene Glycol (Miralax Powder Packet) 17 gm PO DAILY PRN PRN Reason: Constipation Stop: 04/27/19 16:48
--- NOTE | 2019-03-29 13:05 | Psychiatric Consultation ---
Date of Consultation March 29, 2019 Impression / Recommendations (1) Depression: Discussed interplay of mood, anxiety, and neurologic symptoms.reviewed his diagnosis and treatment options, including medications and therapy. Also reviewed behavioral techniques to improve mood, including ensuring adequate time for a full night sleep, good nutrition, engaging in activities he enjoys, and socialization. He agreed to a trial of sertraline; 25 mg daily today and 50 mg daily tomorrow. Reviewed risks, benefits, and side effects. Discussed that it will take 4 to 6 weeks to see the full effect. Discussed option of following up with PCP or psychiatrist for medication management. Recommend individual psychotherapy; will ask the liaison nurse to give him the book of [facility] health resources. Present on Admission?: Yes Risk Factors Assessment Male: Yes : Yes Health Problems: Yes Mental Health Diagnoses: Yes Substance Use Disorders: No Previous Attempt: No Family History of Suicide: No Previous Psychiatric Hospitalization: No Hopelessness: No Protective Factors Assessment : No Responsible for Young Children: Yes Employed: Yes Supportive Family: Yes Psych History Identifying Data 33-year-old male from [place], [place], who was admitted to the hospitalist service after presenting to the ER yesterday with blurry vision, tunnel vision, confusion, and a metallic taste in his mouth. Psychiatry was consulted for depression and anxiety. Chief Complaint " Just in a rut". 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 He reported blurry vision, tunnel vision, headache, a metallic taste in his mouth, and confusion (did not remember how he got to the ER). He said he remembered getting up in the morning, felt fine, made breakfast and was going to take his daughter to [place] to a museum. He thought it was Sunday but when reoriented realized it was Sunday. Last thing he recalls from last evening is drinking double [place] [employer] with friend. He reported drinking < 7 drinks per week, and denied other substance use. His exam was notable for amnesia, diffuse weakness, bilateral and equal upper extremity drift. He was hemodynamically stable, and CBC, TSH, PT/INR, UA, and UDS were normal. CMP was notable for elevated total bilirubin 2.1 and direct bilirubin 0.3. Troponin negative, FLP normal. CTA of the head was unremarkable, head CT, brain and C- spine MRI, and carotid ultrasound were normal, with the exception of sphenoid sinus opacification. He also had an EEG and echo, the results of which are still pending. 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 He has a history of hospitalization for amnesia and headache after an argument with his father, and a history of migraine with green visual phenomena. Reported multiple stressors, including that he was served papers for custody of his daughter. On my assessment, he states that he has poor memory for the events of yesterday, and remembers coming to the ER, but believing that he had been at home with his daughter earlier that morning, which was inaccurate. His daughter was not actually staying with him, and he had gone into work that morning, but was not feeling well and coworkers brought him into the ER. He had been with his daughter about 2 weeks prior, and took her to [place] to a museum at that time. He only remembers parts of being in the hospital yesterday, stating he had a text message conversation with a friend, but does not recall any of it, although his messages were all appropriate. 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 He was then dating another woman, but she ended the relationship unexpectedly around the holidays. Additionally, he his ex- girlfriend served him with paperwork regarding their custody agreement. Even though he states it will not change the amount of time he sees his daughter, as they have always split custody, he was upset that she felt the need to file legal paperwork, and she did not talk to him about it first. He also reports longstanding discord within the family, stating family members are always fighting, and there are always people who are not talking to one another. He finds it hard to trust his family members and has limited supports. He endorses decreased interest, poor motivation, low energy, decreased sleep, decreased appetite with a 40 pound weight loss in 6 months, social withdrawal, and feeling easily overwhelmed. He states there are times when he has thought he would "rather not be here," but denies any suicidal thoughts, plan or intent to harm himself. He describes feeling emotionally numb and, for example does not care as much about certain things, but at other times feels easily overwhelmed by emotions. He reports longstanding social anxiety and negative ruminations, but denies symptoms of CM, panic, PTSD, ernie, and psychosis. He states he has always felt the need to be strong, feeling he "wasn't allowed to break down." Years ago when he and his daughter's mother had broken up temporarily, he endorsed depressive symptoms, and his PCP recommended an antidepressant, but he never took it. Past Psychiatric History Previous Psych History: None Outpatient Services: None Previous Psych Admissions: None History of Previous Suicide Attempt: No Past Medication Trials: None. Allergies Allergy/AdvReac Type Severity Reaction Status Date / Time No Known Allergies Allergy Unverified 07/13/14 11:43 Home Medications Home Medications Medication Instructions Recorded Confirmed Type No Known Home Medications 03/28/19 03/28/19 History Family History Grandfather with a suicide attempt Substance Abuse History Denies recreational/illicit substance use. Drinks approximately once a week, <7 drinks. Last drink liquor the night prior to presentation. Personal History Living Arrangements: Home Living Arrangements Comments: Alone in [place]. Has shared custody of his daughter Childhood: Lived with grandparents growing up. Strained relationship with his father. 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 He remembers feeling like everyone was looking to him to be strong, and that he could not be sad or cry. Patient History Medical History History of multiple concussions from contact sport Migraine Traumatic brain injury (Resolved) Surgical History No significant past surgical history Family History (Updated 03/28/19 @ 16:05 by Tierney Bolivar PA-C) Other Diabetes Hypertension Prostate cancer Social History (Updated 03/28/19 @ 16:06 by Tierney Bolivar PA-C) Preferred Language: Yakut Communication Ability: Effective Inspector Firearms Required: No Beliefs That Will Affect Care: None marital status: Single Current Living Situation: Alone Current Living Situation Comment: with 5 year old daughter current occupational status: employed 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 [employer] Other Information That Helps Us Care for You: No Feels Safe at Home: Yes Safety Concerns: Feels Safe At This Time Smoking Status: Former smoker Do You Dip or Chew Tobacco: No ; Second Hand Exposure: No ; Tobacco Cessation Education Requested by Patient: No Hx Alcohol Use: Yes Alcohol type: beer and hard liquor Alcohol Intake Frequency: Weekly Alcohol Intake Frequency Comment: < 7 drinks per week Hx Substance Use: No Physical Exam Psychiatric: Orientation: alert, oriented x 3 and cooperative Apperance: appropriately dressed, appropriately groomed and appeared stated age Eye Contact: + fair eye contact Motor Behavior: no abnormal motor movements Speech: normal rate/rhythm/volume of speech Affect: + depressed affect, + constricted affect and mood congruent with affect Mood: + depressed mood Thought Process: goal directed thought process Thought Content: reality based without delusions and + hopelessness Suicidal Thoughts: denies suicidal thoughts Homicidal Thoughts: denies homicidal thoughts Hallucinations: no auditory hallucinations and no visual hallucinations Cognition: remote memory grossly intact, attention grossly intact and language grossly intact; + recent memory not intact Insight: + fair insight Judgement: + fair judgement Vital Signs (Past 24 Hours): Last Vital Signs Temp 36.8 C 03/29/19 10:49 Pulse 91 H 03/29/19 10:49 Resp 17 03/29/19 10:49 BP 121/70 03/29/19 10:49 Pulse Ox 96 03/29/19 10:49 Review of Systems All systems reviewed & are unremarkable except as noted in HPI & below Results & Data Medications Administered Gadobutrol (Gadavist 65ml) 9 ml IV ONCE PRN PRN Reason: Interaction Checking Stop: 04/01/19 21:08 Last Admin: 03/28/19 21:09 Dose: 9 ml Documented by: [id number] Ibuprofen (Motrin) 800 mg PO TID PRN PRN Reason: Migraine Headache Stop: 04/27/19 20:59 Last Admin: 03/28/19 18:46 Dose: 800 mg Documented by: [id number] Coding Level of Care Code 73729 [facility] Intl Hosp Care Lvl 3 Diagnoses Depression F32.9
[2019-03-29] MEDS ORDERED: SERTRALINE HCL 50 MG TABLET PO ONE (15:05)
[2019-03-30 05:53] LABS: Basophils # (auto) 0.03 K/uL (0-0.2); Basophils % (auto) 0.5 %; Eosinophils # (auto) 0.08 K/uL (0-0.5); Eosinophils % (auto) 1.4 %; Hematocrit (blood only) 44.8 % (42-52); Hemoglobin 15.3 g/dL (14.0-18.0); Immature Granulocytes # (auto) 0.01 K/uL (0.00-0.02); Immature Granulocytes % (auto) 0.2 %; Lymphocytes # (auto) 2.03 K/uL (1.2-3.4); Lymphocytes % (auto) 36.1 %; Mean Corpuscular Hemoglobin 30.7 pg (25-34); Mean Corpuscular Hgb Conc 34.2 g/dL (32-36); Monocytes # (auto) 0.42 K/uL (0.11-0.59); Monocytes % (auto) 7.5 %; Neutrophils # (auto) 3.06 K/uL (1.4-6.5); Neutrophils % (auto) 54.3 %; Platelet Count 280 K/uL (130-400); RDW Coefficient of Variation 12.6 % (11.5-14.5); RDW Standard Deviation 40.9 fL (36.4-46.3); Red Blood Count 4.98 M/uL (4.7-6.1); White Blood Count 5.63 K/uL (4.8-10.8)
[2019-03-30 06:28] LABS: BUN Creatinine Ratio 18.5 (10-20); Calcium 9.1 mg/dl (8.5-10.1); Creatinine Clr Calc Pharmacy 119.8 ml/min; Est GFR (African American) 111.4; Est GFR (Non-African American) 96.1; Potassium 4.1 mmol/L (3.5-5.1)
[2019-03-30] MEDS ORDERED: SERTRALINE HCL 50 MG TABLET PO SCH (09:00)
--- NOTE | 2019-03-30 10:24 | Hospitalist Progress Note ---
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 He was brought in and dropped off by coworkers secondary to complaints of tunnel vision, headache and confusion. MRI Brain : no acute abnormality, + sphenoid sinus opacification Pt with out URI sx, fever Pt presenting with Altered mental status and NGUYỄN/visual changes similar to prior migraines. AMS is new, but may be atypical migraine Does not appear to be infectious Clinically a lot better this morning Looks depressed and anxious at times No more recurrence of symptoms and all the symptoms have resolved Awaiting EEG and echo results-negative for any antiepileptic focus and echocardiogram: EF of 55 to 60%, LV wall motion is normal, no significant valvular pathology and no interatrial shunt. Medically stable now like to go home today Anxiety/depression Noted to have very anxious with depressed mood Will ask psychiatric evaluation while in the hospital Opacity seen sphenoid sinuses Denies any symptoms of acute sinusitis We will try to discuss with ENT specialist If any sinus pain and/or pressure he will be referred to an ENT by the primary care physician. (5) DVT prophylaxis: SCD/TEDS Disposition: admit to tele Follow up: Pt needs to establish with PCP upon discharge Willing to establish with [facility] PCP and will see neurology in 2 weeks Subjective 03/29/2019 The patient was seen and examined in telemetry unit He was brought into the hospital by his coworkers with history of sudden headache and amnesia Did have tunnel vision associated with it while in the emergency room He had history of recurrent concussion but those did not require any hospitalization and no history of loss of consciousness with complete recovery Denies any symptoms as of this morning Does not have any sinus pain and/or pressure and no history of allergic rhinitis 03/30/2019 The patient was seen and examined in telemetry unit He has been feeling much better and all of his symptoms have been resolved There is no arrhythmias on monitor He was seen by psychiatric stent willing to take the medications that was prescribed Wants to go home this morning Review of Systems Review of Systems: All systems reviewed and are unremarkable except as noted below Eyes: no tunnel vision Neurologic: no memory loss (Cannot remember anything that happened yesterday when he was in the office and then was brought into the emergency room by coworkers) Physical Exam Physical Exam: Sitting in a chair without any acute distress Constitutional: well developed, well nourished and + ill appearing (Looks depressed); no acute distress Eyes: PERRL, conjunctivae normal, anicteric sclerae Neck: trachea midline, no thyromegaly Respiratory: normal respiratory effort Auscultation: lungs clear to auscultation bilaterally Cardiovascular: Rate/Rhythm: regular rate and regular rhythm Heart Sounds: no murmur Gastrointestinal (Abdomen): Inspection/Auscultation: abdomen normal to inspection and normal bowel sounds Percussion/Palpation: abdomen soft; abdomen nontender Musculoskeletal: Extremities: strength 5/5 throughout Neurologic: patellar DTR's 2+ bilat, sensation intact moves all extremities; no focal motor deficits Speech / Cognition: normal speech Motor/Sensory: no tremor Psychiatric: Orientation: alert and oriented x 3 Affect: + depressed affect and + anxious affect Mood: + depressed mood Lymphatic: no cervical or axillary lymphadenopathy Results & Data Vital Signs (Past 12 Hours) Vital Signs Temp Pulse Pulse Resp BP Pulse Ox 03/30/19 07:17 36.6 C 88 18 129/69 97 03/30/19 07:13 83 03/30/19 04:00 36.7 C 70 18 130/65 97 03/30/19 00:10 36.9 C 51 L 17 137/67 97 Laboratory Results Short CBC 03/30/19 Range/Units 05:30 WBC 5.63 (4.8-10.8) K/uL Hgb 15.3 (14.0-18.0) g/dL Hct 44.8 (42-52) % Plt Count 280 (130-400) K/uL BMP 03/30/19 05:30 Sodium 137 Potassium 4.1 Chloride 107 Carbon Dioxide 27 BUN 19 H Creatinine 1.02 Glucose 84 Calcium 9.1 Medications Administered Current Inpatient Medications Acetaminophen (Tylenol) 650 mg PO Q4H PRN PRN Reason: Pain or Fever Stop: 04/27/19 16:48 Al Hydrox/Mg Hydrox/Simethicone (Maalox) 15 ml PO Q4H PRN PRN Reason: Dyspepsia Stop: 04/27/19 16:48 Gadobutrol (Gadavist 65ml) 9 ml IV ONCE PRN PRN Reason: Interaction Checking Stop: 04/01/19 21:08 Last Admin: 03/28/19 21:09 Dose: 9 ml Documented by: Ibuprofen (Motrin) 800 mg PO TID PRN PRN Reason: Migraine Headache Stop: 04/27/19 20:59 Last Admin: 03/28/19 18:46 Dose: 800 mg Documented by: Magnesium Hydroxide (Milk Of Magnesia) 30 ml PO Q12H PRN PRN Reason: Constipation Stop: 04/27/19 16:48 Miscellaneous Information (Pharmacist Discharge Med Rec Consult) 1 ea N/A UD PRN PRN Reason: Consult Stop: 04/27/19 16:48 Ondansetron HCl (Zofran) 4 mg IV Q6H PRN PRN Reason: Nausea Stop: 04/27/19 16:48 Polyethylene Glycol (Miralax Powder Packet) 17 gm PO DAILY PRN PRN Reason: Constipation Stop: 04/27/19 16:48 Sertraline HCl (Zoloft) [facility] [place] Stop: 04/29/19 08:59 Last Admin: 03/30/19 08:21 Dose: 50 mg Documented by:
--- NOTE | 2019-03-30 13:07 | Progress Note ---
DATE: 03/30/2019 I am seeing the patient after a protracted episode of amnesia. He did speak to some of his coworkers and they indicated he functions normally, but toward the end of the time before he left work, he complained of dizziness and was somewhat unsteady. He is completely amnestic for the same. His EEG was normal. Echo was unremarkable. Lab work including tox screen noncontributory. CTA of head and neck showed no acute abnormality, opacification of the sphenoid sinuses. No evidence of aneurysm, focal occlusion, significant stenosis. MRI of the brain; sphenoid sinus opacification, otherwise negative. Carotid ultrasound unremarkable. MRI of the cervical spine; a motion degraded study, mild multilevel disk bulges, very minor multilevel spinal canal narrowing. No cord lesions identified. The patient is feeling well without headache. He was seen by Psychiatry yesterday and begun on Zoloft today. He has not had any further headache, nor neurologic symptoms. 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 Within the differential is transient global amnesia, but given the headache and a prior similar presentation with headache, I suspect this is confusional migraine. The patient does not require any prophylactic agents at this time. We will see him in followup in 2-3 weeks [facility]
--- NOTE | 2019-03-31 09:43 | Discharge Summary ---
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 He reported blurry vision, tunnel vision, headache, a metallic taste in his mouth, and confusion (did not remember how he got to the ER). He said he remembered getting up in the morning, felt fine, made breakfast and was going to take his daughter to [place] to a museum. He thought it was Sunday but when reoriented realized it was Sunday. Last thing he recalls from last evening is drinking double [employer] with friend. He reported drinking < 7 drinks per week, and denied other substance use. His exam was notable for amnesia, diffuse weakness, bilateral and equal upper extremity drift. He was hemodynamically stable, and CBC, TSH, PT/INR, UA, and UDS were normal. CMP was notable for elevated total bilirubin 2.1 and direct bilirubin 0.3. Troponin negative, FLP normal. CTA of the head was unremarkable, head CT, brain and C- spine MRI, and carotid ultrasound were normal, with the exception of sphenoid sinus opacification. He also had an EEG and echo, the results of which are still pending. 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 He has a history of hospitalization for amnesia and headache after an argument with his father, and a history of migraine with green visual phenomena. Reported multiple stressors, including that he was served papers for custody of his daughter. On my assessment, he states that he has poor memory for the events of yesterday, and remembers coming to the ER, but believing that he had been at home with his daughter earlier that morning, which was inaccurate. His daughter was not actually staying with him, and he had gone into work that morning, but was not feeling well and coworkers brought him into the ER. He had been with his daughter about 2 weeks prior, and took her to [place] to a museum at that time. He only remembers parts of being in the hospital yesterday, stating he had a text message conversation with a friend, but does not recall any of it, although his messages were all appropriate. 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 He was then dating another woman, but she ended the relationship unexpectedly around the holidays. Additionally, he his ex- girlfriend served him with paperwork regarding their custody agreement. Even though he states it will not change the amount of time he sees his daughter, as they have always split custody, he was upset that she felt the need to file legal paperwork, and she did not talk to him about it first. He also reports longstanding discord within the family, stating family members are always fighting, and there are always people who are not talking to one another. He finds it hard to trust his family members and has limited supports. He endorses decreased interest, poor motivation, low energy, decreased sleep, decreased appetite with a 40 pound weight loss in 6 months, social withdrawal, and feeling easily overwhelmed. He states there are times when he has thought he would "rather not be here," but denies any suicidal thoughts, plan or intent to harm himself. He describes feeling emotionally numb and, for example does not care as much about certain things, but at other times feels easily overwhelmed by emotions. He reports longstanding social anxiety and negative ruminations, but denies symptoms of CM, panic, PTSD, ernie, and psychosis. He states he has always felt the need to be strong, feeling he "wasn't allowed to break down." Years ago when he and his daughter's mother had broken up temporarily, he endorsed depressive symptoms, and his PCP recommended an antidepressant, but he never took it. Admission Exam Per Admitting Provider Physical Exam: Constitutional: WD/WN, M, vitals as above, NAD, sitting up in bed, pleasant, conversing easily Head: Normocephalic, Atraumatic Eyes: PERRL, pupils dilated, conjunctivae normal, anicteric sclerae ENMT: external ear and nose normal, b/l TM with serous fluid posteriorly, no bulging of [place], oropharynx normal Neck: supple, FROM, no nuchal rigidity, trachea midline, no thyromegaly normal visual inspection Respiratory: normal respiratory effort, lungs clear to auscultation, no wheeze, rales, rhonchi. Normal insp/exp effort, no accessory muscle use Cardiovascular: RRR, no murmur, no edema Vessels: no JVD or carotid bruit Chest: normal inspection of chest Abdomen: normal bowel sounds, soft, nontender, no hepatosplenomegaly Musculoskeletal: no cyanosis or clubbing, extremities motor strength 3/5 throughout Skin: no rashes, warm and dry normal turgor Neurologic: PERRL, EOMI, accommodation nl, no face palsy, no dysarthria CN's II-XI intact bilaterally and moves all extremities Psychiatric: A+Ox3, dysthymic affect Lymphatic: no cervical or axillary lymphadenopathy : deferred Principal Diagnosis Change in mental status-resolved, visual disturbances like tunnel vision secondary to migraine, depression/anxiety. Discharge Exam Constitutional well developed, well nourished and + ill appearing (Looks depressed); no acute distress Eyes PERRL, conjunctivae normal, anicteric sclerae Neck trachea midline, no thyromegaly Respiratory normal respiratory effort Auscultation: lungs clear to auscultation bilaterally Cardiovascular Rate/Rhythm: regular rate and regular rhythm Heart Sounds: no murmur Gastrointestinal (Abdomen) Inspection/Auscultation: abdomen normal to inspection and normal bowel sounds Percussion/Palpation: abdomen soft; abdomen nontender Musculoskeletal Extremities: strength 5/5 throughout Neurologic patellar DTR's 2+ bilat, sensation intact moves all extremities; no focal motor deficits Speech / Cognition: normal speech Motor/Sensory: no tremor Psychiatric Orientation: alert and oriented x 3 Affect: + depressed affect and + anxious affect Mood: + depressed mood Lymphatic no cervical or axillary lymphadenopathy Discharge Data Allergies Allergy/AdvReac Type Severity Reaction Status Date / Time No Known Allergies Allergy Unverified 07/13/14 11:43 Consultations 03/28/19 14:53 ED Decision to Admit Stat 03/28/19 15:50 Consult Neurology Routine 03/28/19 16:49 Consult Case Management - Discharge Planning Routine 03/29/19 12:01 Consult Psychiatry Routine Ordered Studies 03/28/19 13:31 CT head/brain wo con Stat 03/28/19 13:32 CT angio head w con Stat 03/28/19 14:34 MR brain wo con Stat 03/28/19 16:58 US carotid doppler BI Routine 03/28/19 20:07 MR brain seizure wo/w con Routine 03/28/19 20:08 MR cervical spine wo con Routine Hospital Course (1) Altered mental status: Resolved CT of the head and CTA of the head unremarkable, MRI of the brain and MRI of the cervical spine unremarkable, carotid ultrasoundno significant stenosis Echo and EEG are done but results are pending No more memory impairment (2) Generalized weakness: Improved to normality (3) Visual disturbance: No more visual disturbances Visual disturbances seem to be due to attack of migraine Standing vision is resolved (4) Migraine: This is a 33-year-old male with significant past medical history of migraines, 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 He was brought in and dropped off by coworkers secondary to complaints of tunnel vision, headache and confusion. MRI Brain : no acute abnormality, + sphenoid sinus opacification Pt with out URI sx, fever Pt presenting with Altered mental status and NGUYỄN/visual changes similar to prior migraines. AMS is new, but may be atypical migraine Does not appear to be infectious Clinically a lot better this morning Looks depressed and anxious at times No more recurrence of symptoms and all the symptoms have resolved Awaiting EEG and echo results-negative for any antiepileptic focus and echocardiogram: EF of 55 to 60%, LV wall motion is normal, no significant valvular pathology and no interatrial shunt. Medically stable now like to go home today Anxiety/depression Noted to have very anxious with depressed mood Will ask psychiatric evaluation while in the hospital Opacity seen sphenoid sinuses Denies any symptoms of acute sinusitis We will try to discuss with ENT specialist If any sinus pain and/or pressure he will be referred to an ENT by the primary care physician. (5) DVT prophylaxis: SCD/TEDS Disposition: admit to tele Follow up: Pt needs to establish with PCP upon discharge Willing to establish with [facility] PCP and will see neurology in 2 weeks Total Time Total Time Spent Total Time Spent (In Minutes): 35 minutes Total Time Includes: Examination of the Patient, Discharge Planning, Medication Reconciliation and Communication With Other Providers Discharge Plan Discharge Items Patient Disposition: Home - Self-Care Reason For Visit: ALTERED MENTAL STATUS,GENERALIZED WEAKNESS Discharge Diagnosis: Change in mental status-resolved, visual disturbances like tunnel vision secondary to migraine, depression/anxiety. Condition on Discharge: Good Activity: Resume your previous activity Non-emergency contact: Primary Care Provider Call non-emergency contact if: you have any medication questions and your symptoms worsen Follow-up/Referrals: Marjan Hernandez PA-C [Physician Live Truck Operator] - ([facility] neurology office will call with an appointment within 2 weeks) Mini Alan MD [Hospitalist] - 04/03/19 11:00 am PCP,NO [Primary Care Provider] - Diet: Regular Addtl Attending Provider Instructions: Please keep appointment with [facility] neurologist and primary care physician If you have any sinus pain and/or pressure please get a referral from your primary care physician to see an ENT specialist Pending Studies at Discharge: No Stand-Alone Forms: My Network, Smoking Cessation Medications and DC Order Prescriptions: New sertraline 50 mg Tablet 50 mg PO QAM Qty: 30 RF: 0 No Action No Known Home Medications RF: 0 Discharge Orders: Discharge Order (Routine); Ordered 03/30/19 Ordered By: Nadia Mariscal Admission Data Admit Date/Time: 03/28/19 15:33 Attending Provider: Nadia Mariscal Admit Provider: Hugo Mendoza Primary Care Provider: PCP,PIYUSH Other Providers: Hugo Mendoza ; Marjan Haro ; Yajaira Elizabeth Other Interventions: Discharge Summary Assessment (RN) Last Done: 03/30/19 11:01 DC Date/Time DO NOT enter until pt leaves facility: 03/30/19 12:05
== END 2019-03-30 12:05 | disposition home or self-care (01) ==
LOC: ED 12:23 → 2E 12:23 → SUATTDRO 15:33 → 2E 16:23